=== PATIENT | male | born 1945 | race Caucasian/White ===

== ENCOUNTER 2024-12-13 17:09 | Inpatient (IN) | payer MEDICARE, BC ==
[~2024-12-13] VITALS: Ht 172.7 cm; Wt 81.6 kg
[2024-12-13 17:53] LABS: BASOPHILS # (AUTO) 0.1 K/uL (0.0-0.2); BASOPHILS % (AUTO) 0.8 % (0.0-2.0); EOSINOPHILS # (AUTO) 0.5 K/uL (0.0-0.7); EOSINOPHILS % (AUTO) 6.6 % (0.0-6.0); HEMATOCRIT 38 % (39-51); LYMPHOCYTES # (AUTO) 1.7 K/uL (0.8-4.8); LYMPHOCYTES % (AUTO) 22.8 % (20.0-44.0); MEAN CORPUSCULAR HEMOGLOBIN 30 PG (26.0-33.0); MEAN CORPUSCULAR HGB CONC 34 g/dl (31.0-36.0); MEAN CORPUSCULAR VOLUME 89 fL (80-96); MONOCYTES # (AUTO) 0.8 K/uL (0.1-1.30); MONOCYTES % (AUTO) 10.5 % (2.0-12.0); NEUTROPHILS # (AUTO) 4.4 K/uL (1.8-8.9); NEUTROPHILS % (AUTO) 59.3 % (43.0-81.0); PLATELET COUNT (AUTO) 303 K/uL (150-450); RED BLOOD CELL COUNT(AUTO) 4.31 MIL/uL (4.5-6.0); RED CELL DISTRIBUTION WIDTH 15.9 % (11.5-15.0); WHITE BLOOD COUNT (AUTO) 7.4 K/uL (4.3-11.0)
[2024-12-13 18:05] LABS: CALCIUM, SERUM 8.1 mg/dL (8.5-10.1); CARBON DIOXIDE 30 mmol/L (21-32); CHLORIDE 97 mmol/L (98-107); CREATININE 0.7 mg/dL (0.6-1.3); GLUCOSE 105 mg/dL (74-106); POTASSIUM 4.6 mmol/L (3.5-5.1); SODIUM SERUM 131 mmol/L (136-145); UREA NITROGEN, BLOOD 26 mg/dL (7-18)
[2024-12-13 18:09] LABS: ALANINE AMINOTRANSFERASE 61 U/L (12-78); ALBUMIN 3.3 g/dL (3.4-5.0); ALCOHOL, BLOOD < 3 mg/dL (0-10); ALKALINE PHOSPHATASE 109 U/L (46-116); ASPARTATE AMINOTRANSFERASE 39 U/L (15-37); BILIRUBIN,DIRECT 0.2 mg/dL (0.0-0.2); BILIRUBIN,TOTAL 0.4 mg/dL (0.2-1.0); TOTAL PROTEIN, SERUM 7.1 g/dL (6.4-8.2)
[2024-12-13 18:10] LABS: ACETAMINOPHEN <10 ug/ml (10-30); SALICYLATE 1.6 mg/dL (2.8-20.0)
[2024-12-13] MEDS ORDERED: ACETAMINOPHEN ES 500 MG TABLET ONE (18:25)
[2024-12-13] MEDS: ACETAMINOPHEN ES 500 MG TABLET PO ONE (18:39)
[2024-12-13] MEDS ORDERED: INSU100V42 SQ (18:41)
[2024-12-13] MEDS ORDERED: NA P133E RC (18:41)
[2024-12-13] MEDS ORDERED: EZET10TA15 PO (18:41)
[2024-12-13] MEDS ORDERED: GEMTESA PO (18:41)
[2024-12-13] MEDS ORDERED: METO25TA4 PO (18:41)
[2024-12-13] MEDS ORDERED: DULO60CA45 PO (18:41)
[2024-12-13] MEDS ORDERED: MELA5TAB PO (18:41)
[2024-12-13] MEDS ORDERED: ZOLM2.5T7 PO (18:41)
[2024-12-13] MEDS ORDERED: NALO4SPR NS (18:41)
[2024-12-13] MEDS ORDERED: ACET-868 PO (18:41)
[2024-12-13] MEDS ORDERED: TRAM50TA2 PO (18:41)
[2024-12-13] MEDS ORDERED: TAMS-12 PO (18:41)
[2024-12-13] MEDS ORDERED: OXYC10TA49 PO (18:41)
[2024-12-13] MEDS ORDERED: ATOR10TA PO (18:41)
[2024-12-13] MEDS ORDERED: MONT10TA22 PO (18:41)
[2024-12-13] MEDS ORDERED: BISA10SU11 RC (18:41)
[2024-12-13] MEDS ORDERED: MAGN400O6 PO (18:41)
[2024-12-13] MEDS ORDERED: LEVO175T7 PO (18:41)
[2024-12-13] MEDS ORDERED: LEVE500T20 PO (18:41)
[2024-12-13] MEDS ORDERED: INSU100V7 SQ (18:41)
[2024-12-13 18:45] LABS: AMPHETAMINE, URINE NEGATIVE (NEGATIVE); BARBITURATE, URINE NEGATIVE (NEGATIVE); BENZODIAZEPINE, URINE NEGATIVE (NEGATIVE); CANNABINOID, URINE NEGATIVE (NEGATIVE); COCCAINE, URINE NEGATIVE (NEGATIVE); PHENCYCLIDINE SCREEN,URINE NEGATIVE (NEGATIVE)
[2024-12-13 18:53] LABS: OPIATE, URINE POSITIVE (NEGATIVE)
[2024-12-13 20:30] LABS: APPEARANCE,URINE TURBID (CLEAR); BILIRUBIN,URINE 1+ (NEGATIVE); BLOOD, URINE NEGATIVE Ery/uL (NEGATIVE); COLOR,URINE YELLOW (YELLOW); KETONES,URINE NEGATIVE (NEGATIVE); LEUKOCYTE ESTERASE ,URINE 2+ (NEGATIVE); NITRITE, URINE POSITIVE (NEGATIVE); PH,URINE >8.5 (5.0-8.0); PROTEIN,URINE 3+ mg/dl (NEGATIVE); UGLUCOSE NEGATIVE (NEGATIVE); UROBILINOGEN,URINE 0.2 EU/dL (0.2)
[2024-12-13 20:37] LABS: RBC,URINE NONE SEEN /HPF (0-2)
[2024-12-13 20:38] LABS: ADD URINE CULTURE YES; SQUAMOUS EPITHELIAL CELL,UR Few /HPF (None Seen)
[2024-12-13 20:39] LABS: BACTERIA,URINE 3+ /HPF (None Seen); TRIPLE PHOSPHATE CRYSTAL,UR Moderate /HPF (None Seen)
[2024-12-13] MEDS ORDERED: CEPHALEXIN MONOHYDRATE 500 MG CAPSULE PO ONE (23:32)
[2024-12-13] MEDS: CEPHALEXIN MONOHYDRATE 500 MG CAPSULE PO SCH (23:50)
[2024-12-14] MEDS ORDERED: ACETAMINOPHEN 325 MG TABLET ONE (03:31)
[2024-12-14] MEDS: ACETAMINOPHEN 325 MG TABLET PO PRN ×2 (03:37→14:37)
[2024-12-14 10:30] VITALS: BP 97/79; TEMP 98.1; O2SAT 97
[2024-12-14] MEDS ORDERED: MAG HYDROX/AL HYDROX/SIMETH 30 ML UDC PO PRN (10:30)
[2024-12-14] MEDS ORDERED: MAGNESIUM HYDROXIDE 30 ML UDC PO PRN (10:30)
[2024-12-14] MEDS ORDERED: ACETAMINOPHEN 325 MG TABLET PO PRN (10:30)
[2024-12-14] MEDS ORDERED: ZOLPIDEM TARTRATE 5 MG TABLET PO PRN (10:30)
[2024-12-14] MEDS: BLOOD SUGAR DIAGNOSTIC 1 EACH STRIP IN ONE (10:34)
[2024-12-14] MEDS ORDERED: BISACODYL SUPP (10 MG) 10 MG/SUPP.RECT SUPP.RECT RC PRN (14:30)
[2024-12-14] MEDS ORDERED: NA PHOS,M-B/NA PHOS,DI-BA 1 EA ENEMA RC PRN (14:30)
[2024-12-14] MEDS ORDERED: NALOXONE HCL 4 MG SPRAY NS PRN (14:30)
[2024-12-14] MEDS ORDERED: ZOLMITRIPTAN 2.5 MG TABLET PO PRN (14:30)
[2024-12-14] MEDS: TAMSULOSIN 0.4 MG CAP.SR.24H PO SCH (17:36)
[2024-12-14] MEDS: LEVETIRACETAM (250 MG) 250 MG TABLET PO SCH (17:36)
[2024-12-14] MEDS: oxyCODONE IR immediate release 5 MG TABLET PO SCH (17:37)
[2024-12-14 20:00] VITALS: BP 129/85; TEMP 97.5; O2SAT 96
[2024-12-14] MEDS: LORAZEPAM 0.5 MG TABLET PO PRN (20:33)
[2024-12-14] MEDS: HEPARIN SODIUM, PORCINE 5000 UNITS/1 ML VIAL SQ SCH (21:15)
[2024-12-14] MEDS ORDERED: Medication Not On Formulary EA (Melatonin 10 MG) PO SCH (22:00)
[2024-12-14] MEDS ORDERED: DULOXETINE HCL 30 MG CAPSULE.DR PO SCH (22:00)
[2024-12-14] MEDS: INSULIN GLARGINE, 100 UNIT/ML CARTRIDGE SQ SCH (22:00)
[2024-12-14] MEDS: TRAZODONE 50 MG TABLET PO SCH (22:03)
[2024-12-14] MEDS: EZETIMIBE 10 MG TABLET PO SCH (22:03)
[2024-12-14] MEDS: ATORVASTATIN 10 MG TABLET PO SCH (22:04)
[2024-12-15 08:00] VITALS: BP 128/67; TEMP 98.2; O2SAT 95
[2024-12-15] MEDS ORDERED: SUMATRIPTAN SUCCINATE 25 MG TABLET PO PRN (09:00)
[2024-12-15] MEDS ORDERED: Medication Not On Formulary EA ([Gemtesa] 75 MG) PO SCH (09:00)
[2024-12-15] MEDS: MONTELUKAST SODIUM (10MG) 10 MG TABLET PO SCH (09:15)
[2024-12-15] MEDS: DULOXETINE HCL 30 MG CAPSULE.DR PO SCH (09:16)
[2024-12-15] MEDS: LEVOTHYROXINE SODIUM 175 MCG TABLET PO SCH (09:16)
[2024-12-15] MEDS: METOPROLOL SUCCINATE 25 MG TAB.SR.24H PO SCH (09:17)
[2024-12-15 10:27] LABS: ALBUMIN 3.3 g/dL (3.4-5.0); BILIRUBIN,TOTAL 0.7 mg/dL (0.2-1.0); CALCIUM, SERUM 8.6 mg/dL (8.5-10.1); CREATININE 0.7 mg/dL (0.6-1.3); POTASSIUM 4.1 mmol/L (3.5-5.1); TOTAL PROTEIN, SERUM 7.4 g/dL (6.4-8.2)
[2024-12-15 10:32] LABS: CREATININE 0.7 mg/dL (0.6-1.3)
[2024-12-15 16:00] VITALS: BP 130/91; TEMP 97.9; O2SAT 97
[2024-12-15 20:00] VITALS: BP 96/69; TEMP 97.5; O2SAT 96
[2024-12-15] MEDS: MAGNESIUM HYDROXIDE 30 ML UDC PO PRN (21:26)
[2024-12-16 08:00] VITALS: BP 108/63; TEMP 97.5; O2SAT 99
[2024-12-16] MEDS ORDERED: CEPH-570 PO (10:07)
[2024-12-16] MEDS ORDERED: TRAZ-252 PO (10:10)
[2024-12-16] MEDS: METFORMIN 500 MG TABLET PO SCH (10:31)
[2024-12-16] MEDS: TRAMADOL HCL 50 MG TABLET PO PRN (10:31)
[2024-12-16 17:00] VITALS: BP 98/68; TEMP 97.7; O2SAT 98
[2024-12-16 20:55] VITALS: BP 98/71; TEMP 97.7; O2SAT 98
[2024-12-16 22:20] LABS: CHOLESTEROL 109 mg/dL (<200); HDL CHOLESTEROL 60 mg/dL (40-60); LDL 42 mg/dL (0-99); TRIGLYCERIDES 82 mg/dL (30-150)
[2024-12-17 01:38] VITALS: TEMP 97.7
== END 2024-12-17 17:33 | DRG 885 ==
LOC: ER 17:31 → GPS 23:10 → GPSOV 12-14 13:20
PROVIDERS: ADMIT Psychiatry & Neurology Psychiatry
DX: F33.2 Major depressive disorder, recurrent severe without psychotic features (principal); G93.41 Metabolic encephalopathy; E44.1 Mild protein-calorie malnutrition; E87.1 Hypo-osmolality and hyponatremia; N39.0 Urinary tract infection, site not specified; F29 Unspecified psychosis not due to a substance or known physiological condition; E11.9 Type 2 diabetes mellitus without complications; E03.9 Hypothyroidism, unspecified; E78.5 Hyperlipidemia, unspecified; E86.0 Dehydration; E88.09 Other disorders of plasma-protein metabolism, not elsewhere classified; G40.909 Epilepsy, unspecified, not intractable, without status epilepticus; I10 Essential (primary) hypertension; B96.4 Proteus (mirabilis) (morganii) as the cause of diseases classified elsewhere; F41.9 Anxiety disorder, unspecified; Z79.4 Long term (current) use of insulin; Z88.2 Allergy status to sulfonamides; Z73.6 Limitation of activities due to disability; Z68.27 Body mass index [BMI] 27.0-27.9, adult; Z20.822 Contact with and (suspected) exposure to COVID-19
CPT/HCPCS: 36415; 80048-TC; 80053-TC; 80061-TC; 80076-TC; 81001; 82565-TC; 82962-TC; 85025-TC; 87081-TC; 87086-TC; 98960; G0480; J1644; J1815